=== PATIENT | female | born 2000 | race American Indian/Alaskan Native ===

== ENCOUNTER 2019-04-03 12:08 | Inpatient (IN) | payer MEDICAID ==
[2019-04-03 13:21] LABS: Hematocrit 31.6 % (30.3-42.9); Hemoglobin 10.5 gm/dl (10.1-14.3); Mean Corpuscular HGB Conc 33 % (30-34); Mean Corpuscular Volume 86 fl (79-97); Platelet Count 138 K/mm3 (140-440); Red Blood Count 3.66 M/mm3 (3.65-5.03); Red Cell Distribution Width 13.6 % (13.2-15.2)
[2019-04-03] MEDS ORDERED: SUBLIMAZE IV PRN (13:30)
[2019-04-03] MEDS ORDERED: MINERAL OIL PO PRN (13:30)
[2019-04-03] MEDS ORDERED: BRETHINE SUB-Q PRN (13:30)
[2019-04-03] MEDS ORDERED: STADOL IV PRN (13:30)
[2019-04-03] MEDS ORDERED: XYLOCAINE 2% INFILTRATI NR (13:30)
[2019-04-03] MEDS ORDERED: BRETHINE IVP PRN (13:30)
[2019-04-03] MEDS ORDERED: LACTATED RINGERS 1,000 ML IV SCH (14:00)
[2019-04-03] MEDS ORDERED: AMPICILLIN/NS 2 GM/100 ML 2 GM/100 ML BAG IV ONE (14:00)
[2019-04-03] MEDS ORDERED: PITOCin/NS 30 UNIT/500ML 30 UNITS/500 ML BAG IV SCH (14:00)
[2019-04-03] MEDS ORDERED: PITOCin/NS 20 UNIT/1000ML DRIP 20 UNITS/1,000 ML BAG IV SCH (14:00)
--- NOTE | 2019-04-03 15:54 | History and Physical Report ---
History of Present Illness Date of examination: 04/03/19 Date of admission: 04/03/19 13:08 Chief complaint: I'm having contractions History of present illness: Pt is a 18 year old who presents at 39.6 weeks in active labor. Pt denies any complications with her . Per the patient she is GBS positive however, records are not available for review. Pt sees [facility] therapist for her care. Past History Past Medical History: no pertinent history Past Surgical History: no surgical history Family/Genetic History: none Social history: single - Obstetrical History Expected Date of Delivery: 04/04/19 Actual Gestation: 39 Week(s) 6 Day(s) : 1 Number of Living Children: 0 Medications and Allergies Allergies Allergy/AdvReac Type Severity Reaction Status Date / Time No Known Allergies Allergy Verified 04/03/19 13:11 Active Meds: Active Medications Butorphanol Tartrate (Stadol) 2 mg IV Q2H PRN PRN Reason: Pain , Severe (7-10) Last Admin: 04/03/19 13:44 Dose: 2 mg Documented by: Ephedrine Sulfate (Ephedrine Sulfate) 10 mg IV Q2M PRN PRN Reason: Hypotension Fentanyl (Sublimaze) 100 mcg IV Q2H PRN PRN Reason: Labor Pain Lactated Ringer's (Lactated Ringers) 1,000 mls @ 125 mls/hr IV DIRECT CHERYL Last Admin: 04/03/19 13:44 Dose: 125 mls/hr Documented by: Oxytocin/Sodium Chloride (Pitocin/Ns 20 Unit/1000ml Drip) 20 units in 1,000 mls @ 125 mls/hr IV DIRECT CHERYL Oxytocin/Sodium Chloride (Pitocin/Ns 30 Unit/500ml) 30 units in 500 mls @ 1 mls/hr IV TITR CHERYL; Protocol Ampicillin Sodium (Ampicillin/Ns 1 Gm/50 Ml) 1 gm in 50 mls @ 100 mls/hr IV Q4H CHERYL; Protocol Lidocaine (Xylocaine 2%) 20 ml INFILTRATI ONCE NR Stop: 04/04/19 13:29 Mineral Oil (Mineral Oil) 30 ml PO QHS PRN PRN Reason: Constipation Terbutaline Sulfate (Brethine) 0.25 mg SUB-Q ONCE PRN PRN Reason: Hyperstimulation/Hypertonicity Terbutaline Sulfate (Brethine) 0.25 mg IVP ONCE PRN PRN Reason: Hyperstimulation/Hypertonicity Review of Systems All systems: negative Genitourinary: leakage of fluid, contractions - Vital Signs Vital signs: Vital Signs Pulse BP 87 118/71 04/03/19 12:42 04/03/19 12:42 Temp Pulse Resp BP Pulse Ox 97.5 F L 93 H 20 123/55 82 L 04/03/19 12:43 04/03/19 15:43 04/03/19 13:44 04/03/19 15:43 04/03/19 15:24 - Physical Exam Breasts: Cardiovascular: Regular rate, Normal S1, Normal S2 Abdomen: Positive: normal appearance, soft, normal bowel sounds. Negative: distention, tenderness Genitourinary (Female): Positive: normal external genitalia, normal perenium Vulva: both: normal Vagina: Positive: normal moisture. Negative: discharge Cervix: Negative: lesion, discharge Uterus: Positive: normal size, normal contour Adnexa: both: normal Anus/Rectum: Positive: normal perianal skin, heme negative. Negative: rectal mass, hemorrhoids Extremities: Deep Tendon Reflex Grade: Normal +2 - Obstetrical FHR: auscultation normal Uterine Contraction Monitor Mode: External Cervical Dilatation: 4 Cervical Effacement Percentage: 90 station: -2 Uterine Contraction Pattern: Regular Uterine Tone Measurement Phase: Contraction Uterine Contraction Intensity: Moderate Results Result Diagrams: 04/03/19 13:10 Abnormal lab results 04/03/19 Range/Units 13:10 WBC 12.2 H (4.5-11.0) K/mm3 Plt Count 138 L (140-440) K/mm3 All other labs normal. Assessment and Plan IUp at 39.6 weeks in active labor. Admit to L&D. AROM when able. Treat for GBS status. Anticipate .
--- NOTE | 2019-04-03 16:00 | Procedure Note ---
OB Delivery Note - Delivery Date of Delivery: 04/03/19 Surgeon: ANA LILIA CLARK Estimated blood loss: 200cc - Vaginal Delivery presentation: vertex Delivery position: OA Intrapartum events: none, other(please specify) (low baseline) Delivery induction: none Delivery monitor: external FHT, external uterine Route of delivery: Delivery placenta: spontaneous Delivery cord: 3 umbilical vessels Episiotomy: none Delivery laceration: other (periurethral) Delivery repair: chromic Anesthesia: local Delivery comments: Viable male delivered over intact perineum with 3vc. Apgars 8,9. Weight 7 pounds 7 ounces. Infant was not placed on maternal abdomen at mother's request. Cord clamped and cut and placed on warmer. Suture placed in small periurethral laceration. Pt tolerated procedure well. Excellent hemostasis. - Infant A at 1 minute: 8 at 5 minutes: 9 Infant Gender: Male (7 pounds 7 ounces)
[2019-04-03] MEDS ORDERED: AMPICILLIN/NS 1 GM/50 ML 1 GM/50 ML BAG IV SCH (18:00)
[2019-04-03] MEDS ORDERED: PHENERGAN PO PRN (18:15)
[2019-04-03] MEDS ORDERED: TUCKS PAD TP PRN (18:15)
[2019-04-03] MEDS ORDERED: TYLENOL PO PRN (18:15)
[2019-04-03] MEDS ORDERED: DULCOLAX PR PRN (18:15)
[2019-04-03] MEDS ORDERED: NORCO 5/325 PO PRN (18:15)
[2019-04-03] MEDS ORDERED: MILK OF MAGNESIA PO PRN (18:15)
[2019-04-03] MEDS ORDERED: ZOFRAN IV PRN (18:15)
[2019-04-03] MEDS ORDERED: SODIUM CHLORIDE FLUSH SYRINGE 10 ML IV NR (18:15)
[2019-04-03] MEDS ORDERED: BENADRYL PO PRN (18:15)
[2019-04-03] MEDS ORDERED: LANSINOH TP PRN (18:15)
[2019-04-03] MEDS ORDERED: PHENERGAN PR PRN (18:15)
[2019-04-03] MEDS: COLACE PO SCH (23:27)
[2019-04-03] MEDS: IBUPROFEN PO SCH (23:27)
[2019-04-04] MEDS: IBUPROFEN PO SCH ×4 (05:36→23:15)
[2019-04-04 05:54] LABS: Hematocrit 26.1 % (30.3-42.9); Hemoglobin 8.6 gm/dl (10.1-14.3)
[2019-04-04] MEDS: COLACE PO SCH ×2 (11:56→23:08)
--- NOTE | 2019-04-04 15:32 | Progress Note ---
Assessment and Plan PPD 1 s/p . Doing well. Pt here for 48 hours for unknown GBS. Continue routine care. Subjective - Subjective Date of service: 04/04/19 Interval history: Pt is a 18 year old who presents at 39.6 weeks in active labor. Pt denies any complications with her . Per the patient she is GBS positive however, records are not available for review. Pt sees [facility] manager for her care. Patient reports: appetite normal, voiding normally, pain well controlled, ambulating normally [place]: doing well Objective - Vital Signs Latest vital signs: Vital Signs Temp Pulse Resp BP BP Pulse Ox 04/04/19 11:38 97.9 F 88 16 116/73 99 04/04/19 07:57 98.3 F 71 20 103/54 99 04/04/19 00:01 98.5 F 90 20 95/51 100 04/04/19 00:00 98.9 F 99 H 20 95/51 04/03/19 20:46 98.2 F 85 20 112/70 99 04/03/19 17:35 97.9 F 78 20 99/54 04/03/19 16:42 84 108/52 04/03/19 16:38 78 108/55 04/03/19 16:13 90 107/67 04/03/19 15:57 91 H 109/64 04/03/19 15:43 93 H 123/55 Intake and Output 04/04/19 04/04/19 04/04/19 06:59 14:59 22:59 Intake Total 240 360 Balance 240 360 Intake: Oral 240 360 Other: Total, Intake Amount 240 240 # Voids Void 1 1 - Exam Breasts: Present: deferred Cardiovascular: Present: Regular rate, Normal S1, Normal S2 Lungs: Present: Clear to auscultation, Normal air movement Abdomen: Present: normal appearance, soft Uterus: Present: normal, firm Extremities: Present: normal Deep Tendon Reflex Grade: Normal +2 - Labs Labs: Abnormal lab results 04/04/19 Range/Units 05:24 Hgb 8.6 L (10.1-14.3) gm/dl Hct 26.1 L (30.3-42.9) %
[2019-04-05] MEDS: IBUPROFEN PO SCH ×3 (05:41→12:25)
[2019-04-05 07:59] VITALS: BP 105/60
--- NOTE | 2019-04-05 08:25 | Discharge Summary ---
Providers - Providers Date of Admission: 04/03/19 13:08 Date of discharge: 04/05/19 Attending physician: CIARA AGUILAR MD Primary care physician: CIARA AGUILAR MD Hospitalization Reason for admission: active labor Delivery: Procedure details: Please see delivery note. Episiotomy: none Laceration: other (periurethral ) Other procedures: none complications: none baby: male Hospital course: The patient was admitted in active labor will not have a spontaneous vaginal delivery which she tolerated well. The remainder of her course, condition at discharge her tampons per day #2. She'll follow up in the office in 4 weeks Condition at discharge: Stable Disposition: - TO HOME OR SELFCARE - Discharge Diagnoses (1) Anemia Status: Acute Qualifiers: Anemia type: unspecified type Qualified Code(s): D64.9 - Anemia, unspecified (2) Term of male Status: Acute (3) Obesity Status: Acute Plan - Discharge Medications Prescriptions: Docusate Sodium [Colace] 100 mg PO BID PRN #60 capsule PRN Reason: Constipation Ferrous Sulfate [Feosol 325 MG tab] 325 mg PO BID #60 tablet Ibuprofen [Motrin] 800 mg PO Q8HR PRN #30 tablet PRN Reason: Pain, Moderate (4-6) HYDROcodone/APAP 5-325 [Ophiem 5/325] 1 each PO Q6HR PRN #20 tablet PRN Reason: Pain - Provider Discharge Summary Activity: routine, no sex for 6 weeks, no heavy lifting 4 weeks, no strenuous exercise Diet: routine Instructions: routine Additional instructions: [] Smoking cessation referral if applicable(refer to patient education folder for contact #) [] Refer to [facility] Booklet Call your doctor immediately for: * Fever > 100.5 * Heavy vaginal bleeding ( >1 pad per hour) * Severe persistent headache * Shortness of breath * Reddened, hot, painful area to leg or breast * Drainage or odor from incision. * Keep incision clean and dry at all times and follow doctor's instructions regarding bathing/showering - Follow up plan Follow up: CIARA AGUILAR MD [Primary Care Provider] - 05/03/19 (Please call to schedule your exam. Please schedule your son's circumcision before he is one month old. )
--- NOTE | 2019-04-05 08:25 | Progress Note ---
Assessment and Plan A: PPD#2 s/p at term; Asymptomatic anemia P: Continue routine care. Anticipate discharge later today. Subjective - Subjective Date of service: 04/05/19 Principal diagnosis: s/p at term Interval history: No overnight events Patient reports: appetite normal, voiding normally, pain well controlled, ambulating normally, no dizzy ambulation [place]: doing well Objective - Vital Signs Latest vital signs: Vital Signs Temp Pulse Resp BP BP Pulse Ox 04/05/19 07:30 98.5 F 78 18 105/60 04/05/19 01:09 98.6 F 75 16 104/65 04/04/19 16:36 98.4 F 80 20 113/71 98 04/04/19 11:38 97.9 F 88 16 116/73 99 Intake and Output 04/04/19 04/05/19 04/05/19 22:59 06:59 14:59 Intake Total 120 240 480 Balance 120 240 480 Intake: Oral 120 480 Intake, Free Water 240 Other: Total, Intake Amount 120 480 # Voids Void 1 1 - Exam Breasts: Present: deferred Cardiovascular: Present: Regular rate Lungs: Present: Clear to auscultation Abdomen: Present: soft Uterus: Present: fundal height below umbilicus Extremities: Present: normal
[2019-04-05] MEDS: COLACE PO SCH (09:38)
== END 2019-04-05 16:00 | disposition home or self-care (01) | DRG 775 ==
LOC: TRG 12:08 → LD 13:08 → OB 17:16
PROVIDERS: ADMIT Obstetrics & Gynecology; ATTEND Obstetrics & Gynecology
PROC: 10E0XZZ Delivery of Products of Conception, External Approach (ICD-10-PCS; principal; 2019-04-03)
PROC: 0UQMXZZ Repair Vulva, External Approach (ICD-10-PCS; 2019-04-03)
DX: O99.824 Streptococcus B carrier state complicating childbirth (principal); Z3A.39 39 weeks gestation of pregnancy; Z37.0 Single live birth; O71.82 Other specified trauma to perineum and vulva; O99.214 Obesity complicating childbirth; E66.9 Obesity, unspecified; O99.02 Anemia complicating childbirth; D64.9 Anemia, unspecified
CPT/HCPCS: 36415; 85014; 85018; 85027; 86592; 86706; 86762; 86850; 86900; 86901; 87806; G0378; J0290; J0595; J2590; J7120